=== PATIENT | male | born 1955 | race American Indian/Alaskan Native ===

== ENCOUNTER 2018-04-15 09:07 | Observation (INO) | payer MEDICARE, OTHER ==
[2018-04-15 09:07] VITALS: BMI 26.6
[2018-04-15 09:38] LABS: BASO % 1.5 % (0.0-2.0); EOS # 0.1 K/uL (0.0-0.7); EOS % 3.1 % (0.0-4.0); HEMOGLOBIN 12.8 g/dL (12.0-18.0); LYMPH # 0.6 K/uL (1.0-4.3); LYMPH % 20.7 % (20.0-40.0); MEAN CORPUSCULAR HEMOGLOBIN 28.1 pg (27.0-31.0); MEAN CORPUSCULAR HGB CONC 31.5 g/dL (33.0-37.0); MEAN PLATELET VOLUME 9.7 fL (7.2-11.7); MONO # 0.3 K/uL (0.0-0.8); MONO % 10.2 % (0.0-10.0); NEUT % 64.5 % (50.0-75.0); NRBC % 0.1 % (0.0-2.0); RBC 4.56 Mil/uL (4.40-5.90); RED CELL DISTRIBUTION WIDTH 12.6 % (11.5-14.5); WHITE BLOOD COUNT 3.1 K/uL (4.8-10.8)
[2018-04-15 09:46] LABS: INR 1.1; PROTHROMBIN TIME 11.8 SECONDS (9.7-12.2)
[2018-04-15 09:54] LABS: ALB/GLOB RATIO 1.4 (1.0-2.1); ALBUMIN 4.4 g/dL (3.5-5.0); ALT/SGPT 54 U/L (21-72); AST/SGOT 45 U/L (17-59); BLOOD UREA NITROGEN 18 mg/dL (9-20); CALCIUM 9.4 mg/dl (8.6-10.4); GFR NON-AFRICAN AMERICAN > 60
[2018-04-15 10:05] LABS: CK-MB 2.16 ng/mL (0.0-3.38)
[2018-04-15] MEDS ORDERED: Tetracaine 0.5% Ophth (OR ONLY) OD ONE (10:20)
--- NOTE | 2018-04-15 10:26 | CT ---
Date of service: 04/15/2018 PROCEDURE: CT HEAD WITHOUT CONTRAST. HISTORY: Blurry vision COMPARISON: No prior TECHNIQUE: Axial computed tomography images were obtained through the head/brain without intravenous contrast. Radiation dose: Total exam DLP = 1121.2 mGy-cm. This CT exam was performed using one or more of the following dose reduction techniques: Automated exposure control, adjustment of the mA and/or kV according to patient size, and/or use of iterative reconstruction technique. FINDINGS: HEMORRHAGE: No intracranial hemorrhage. BRAIN: Mild chronic kishor periventricular white matter ischemic changes which extend peripherally into the deep white matter both cerebral hemispheres. There may be a few tiny chronic bilateral basal nuclei lacunar type infarcts. VENTRICLES: No obstructive hydrocephalus. CALVARIUM: Acute calvarial fracture seen. PARANASAL SINUSES: Minor mucosal thickening seen in the few ethmoid air cells and left aspect of the frontal sinus. there is also minimal mucosal thickening right chamber sphenoid sinus versus a tiny fluid level MASTOID AIR CELLS: Unremarkable as visualized. No inflammatory changes. Note made of flattening of the superior surface left mandibular condyle; rule out sequela of old trauma. OTHER FINDINGS: Note made of buckle procedure left globe. In addition, there is a semi lunar shaped 14 mm x 4.8 mm mixed density structure which appears to be located within or beneath the left eyelid. Consider ophthalmologic consultation for further evaluation. IMPRESSION: No acute intracranial hemorrhage. Mild chronic periventricular white matter ischemic changes with suspected few chronic bilateral basal nuclei lacunar type infarcts.. Mild generalized volume loss. Buckle procedure left globe. There is a small semi lunar shaped mixed density structure which appears to be either within along the surface of the left globe beneath the eyelid or within the left eyelid of uncertain etiology. Ophthalmologic consultation suggested Minimal mucosal thickening within the aforementioned paranasal sinuses.
[2018-04-15] MEDS ORDERED: Tetracaine 0.5% Ophth (OR ONLY) ONE (10:37)
--- NOTE | 2018-04-15 10:54 | C.PDOC ---
History Of Present Illness 63 y/o male,w/PMhx of diabetes and HTN, presents to the ER for evaluation of blurry vision in right eye which has been present since the morning today. Patient states that the blurriness began after he took his diabetes and HTN medi cations. Patient reports that he has history of left eye lens removal secondary to glaucoma. He notes that he only has vision in his right eye. Denies having facial droop, gaze changes, slurred speech, extremity weakness, sensory changes, CP, SOB, and palpitations. Time Seen by Provider: 04/15/18 09:18 Chief Complaint (Nursing): Eye Problem History Per: Patient History/Exam Limitations: no limitations Onset/Duration Of Symptoms: Hrs Current Symptoms Are (Timing): Still Present Severity: Moderate Past Medical History Reviewed: Historical Data, Nursing Documentation, Vital Signs Vital Signs: Last Vital Signs Temp 97.3 F L 04/15/18 09:09 Pulse 97 H 04/15/18 09:09 Resp 20 04/15/18 09:09 BP 157/91 H 04/15/18 09:09 Pulse Ox 97 04/15/18 09:09 - Medical History PMH: Arthritis, Diabetes, HTN, Hypercholesterolemia Denies: Chronic Kidney Disease Surgical History: Cholecystectomy Family History: States: No Known Family Hx - Social History Hx Tobacco Use: No Hx Alcohol Use: No Hx Substance Use: No - Immunization History Hx Influenza Vaccination: Yes (2018) Hx Pneumococcal Vaccination: Yes (2018) Review Of Systems Except As Marked, All Systems Reviewed And Found Negative. Constitutional: Negative for: Fever, Chills Eyes: Positive for: Other (right eye blurriness) Cardiovascular: Negative for: Chest Pain, Palpitations Respiratory: Negative for: Shortness of Breath Neurological: Negative for: Weakness, Numbness Physical Exam - Physical Exam Appears: Non-toxic, No Acute Distress Skin: Normal Color, Warm, Dry Head: Atraumatic, Normacephalic Eye(s): bilateral: Other (left eye: pupil is fixed right eye:pupil is reactive, no erythema, no injection, no discharge) Nose: Normal Oral Mucosa: Moist Neck: Supple Chest: Symmetrical Cardiovascular: Rhythm Regular Respiratory: Normal Breath Sounds, No Rales, No Rhonchi, No Wheezing Neurological/Psych: Oriented x3, Normal Speech ED Course And Treatment - Laboratory Results Result Diagrams: 04/15/18 09:35 04/15/18 09:35 Lab Results: PT 11.8 SECONDS (9.7-12.2) 04/15/18 09:35 INR 1.1 04/15/18 09:35 APTT 29 SECONDS (21-34) 04/15/18 09:35 Troponin I 0.0140 ng/mL (0.00-0.120) 04/15/18 09:35 Total Bilirubin 0.8 mg/dL (0.2-1.3) 04/15/18 09:35 AST 45 U/L (17-59) 04/15/18 09:35 ALT 54 U/L (21-72) 04/15/18 09:35 Alkaline Phosphatase 100 U/L (38-126) 04/15/18 09:35 Total Protein 7.4 g/dL (6.3-8.3) 04/15/18 09:35 Albumin 4.4 g/dL (3.5-5.0) 04/15/18 09:35 Globulin 3.0 gm/dL (2.2-3.9) 04/15/18 09:35 Albumin/Globulin Ratio 1.4 (1.0-2.1) 04/15/18 09:35 O2 Sat by Pulse Oximetry: 97 (RA) Pulse Ox Interpretation: Normal - CT Scan/US CT-Head Other Rad Studies (CT/US): Read By Radiologist, Radiology Report Reviewed CT/US Interpretation: Date of service: 04/15/2018. PROCEDURE: CT HEAD WITHOUT CONTRAST. HISTORY: Blurry vision. COMPARISON: No prior. TECHNIQUE: Axial computed tomography images were obtained through the head/brain without intravenous contrast. Radiation dose: Total exam DLP = 1121.2 mGy-cm. This CT exam was performed using one or more of the following dose reduction techniques: Automated exposure control, adjustment of the mA and/or kV according to patient size, and/or use of iterative reconstruction technique. FINDINGS: HEMORRHAGE: No intracranial hemorrhage. BRAIN: Mild chronic kishor periventricular white matter ischemic changes which extend peripherally into the deep white matter both cerebral hemispheres. There may be a few tiny chronic bilateral basal nuclei lacunar type infarcts. VENTRICLES: No obstructive hydrocephalus. CALVARIUM: Acute calvarial fracture seen. PARANASAL SINUSES: Minor mucosal thickening seen in the few ethmoid air cells and left aspect of the frontal sinus. there is also minimal mucosal thickening right chamber sphenoid sinus versus a tiny fluid level. MASTOID AIR CELLS: Unremarkable as visualized. No inflammatory changes. Note made of flattening of the superior surface left mandibular condyle; rule out sequela of old trauma. OTHER FINDINGS: Note made of buckle procedure left globe. In addition, there is a semi lunar shaped 14 mm x 4.8 mm mixed density structure which appears to be located within or beneath the left eyelid. Consider ophthalmologic consultation for further evaluation. IMPRESSION: No acute intracranial hemorrhage. Mild chronic periventricular white matter ischemic changes with suspected few chronic bilateral basal nuclei lacunar type infarcts.. Mild generalized volume loss. Buckle procedure left globe. There is a small semi lunar shaped mixed density structure which appears to be either within along the surface of the left globe beneath the eyelid or within the left eyelid of uncertain etiology. Ophthalmologic consultation suggested. Minimal mucosal thickening within the aforementioned paranasal sinuses. Progress Note: Blood work, CT head ordered and reviewed. 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 Began to have right eye blurry vision this morning, intraocular pressures checked by me, 30/34. Patient unable to do visual acuity due to blurry vision. NIHSS Stroke Scale - Date/Time Evaluation Performed Date Performed: 04/15/18 Time Performed: 09:09 When Was NIHSS Performed: Baseline - How Severe is the Stoke Level of Consciousness: 0=Alert LOC to Questions: 0=Both comments correct LOC to commands: 0=Obeys both correctly Best Gaze: 0=Normal Visual: 2=Complete hemianopia Facial: 0=Normal Motor Arm - Left: 0=No drift Motor Arm - Right: 0=No drift Motor Leg - Left: 0=No drift Motor Leg - Right: 0=No drift Limb Ataxia: 0=Absent Sensory: 0=Normal Best Language: 0=No aphasia Dysarthia: 0=Normal articulation Extinction & Inattention (Neglect): 0=Normal, no object Score: 2 rTPA Inclusion/Exclusion - Refusal of Treatment Patient Refused Treatment: Yes - Inclusion Criteria for Altepase Patient is 18 years or Older: No The Clinical Diagnosis of Ischemic Stroke That is Causing a Potentially Disabling Neurological Deficit: No Time of Onset is Well Established to be Less Than 270 Minute Before Treatment Would Begin: No Risk/Benefit Discussed With Patient/Family Member Present: No Disposition - Disposition Disposition: HOSPITALIZED - Scribe Statement The provider has reviewed the documentation as recorded by the Cathie Crawford Provider Attestation: All medical record entries made by the Zulemaibe were at my direction and personally dictated by me. I have reviewed the chart and agree that the record accurately reflects my personal performance of the history, physical exam, med ica decision making, and the department course for this patient. I have also personally directed, reviewed, and agree with the discharge instructions and disposition.
[2018-04-15 17:41] VITALS: RESP 20
[2018-04-15] MEDS: Enoxaparin 40 mg Syringe SC SCH (19:18)
[2018-04-15] MEDS ORDERED: Latanoprost 2.5 ml Opht Soln OU SCH (22:00)
[2018-04-15] MEDS: (Novolin R) Insulin Human Regular 100 units/ml vial SC SCH (22:17)
[2018-04-15] MEDS: Dorzolamide 2% Opht Sol 10ml OU SCH (22:19)
[2018-04-16 01:36] VITALS: O2SAT 98
[2018-04-16 06:55] LABS: HDL CHOLESTEROL 77 mg/dL (30-70)
[2018-04-16 07:06] LABS: LDL CHOLESTEROL 80 mg/dL (0-129)
[2018-04-16] MEDS: (Novolin R) Insulin Human Regular 100 units/ml vial SC SCH ×2 (08:13→11:27)
[2018-04-16] MEDS: Enoxaparin 40 mg Syringe SC SCH (09:12)
[2018-04-16] MEDS: Dorzolamide 2% Opht Sol 10ml OU SCH (09:14)
[2018-04-16] MEDS ORDERED: GlipiZIDE 2.5 mg Tab PO SCH (10:00)
--- NOTE | 2018-04-16 12:19 | CARD ---
APPROVED REPORT Date of service: 04/15/2018 EKG Measurement Heart [id number] <Conclusion> Normal sinus rhythm Minimal voltage criteria for LVH, may be normal variant Borderline ECG
--- NOTE | 2018-04-16 12:24 | MRI ---
Date of service: 04/16/2018 PROCEDURE: MRI BRAIN WITHOUT CONTRAST HISTORY: CVA COMPARISON: CT head without contrast from 04/15/2018. TECHNIQUE: Multiplanar, multisequence MR images of the brain were obtained without intravenous contrast enhancement. FINDINGS: HEMORRHAGE: None DWI: No evidence of an acute or early subacute infarction. BRAIN PARENCHYMA: There are moderate chronic microangiopathic changes. There is no mass, mass effect or abnormal extra-axial fluid collection. There is no territorial infarction. There is a partially empty sella. The midline sagittal structures are normal. VENTRICLES: There is mild age-related global parenchymal volume loss and proportionate enlargement of the ventricles and cortical sulci. CRANIUM: There is normal bone marrow signal pattern. ORBITS: Grossly unremarkable. PARANASAL SINUSES/MASTOIDS: Micro is there is mild mucosal thickening in the paranasal sinuses. The mastoid air cells are clear. VASCULAR SYSTEM: Skull base flow voids intact. OTHER FINDINGS: None. IMPRESSION: 1. No acute intracranial abnormality. 2. Mild chronic microangiopathic changes and mild age-related global parenchymal volume loss.
--- NOTE | 2018-04-16 16:30 | CP.PCM.PN ---
Subjective - Date & Time of Evaluation Date of Evaluation: 04/16/18 Time of Evaluation: 12:00 - Subjective Subjective: patient seen today, states feels better, denies any blurred vision states seeing things ok and walks around the floor without any issues vss and labs reviewed- stable Objective - Vital Signs/Intake and Output Vital Signs (last 24 hours): Temp Pulse Resp BP Pulse Ox 97.7 F 77 20 126/83 98 04/16/18 07:00 04/16/18 11:37 04/16/18 07:00 04/16/18 07:00 04/16/18 07:00 Intake and Output: 04/16/18 04/16/18 06:59 18:59 Intake Total 350 Balance 350 - Medications Medications: Current Medications Aspirin (Ecotrin) 81 mg PO DAILY [facility] Last Admin: 04/16/18 09:11 Dose: 81 mg Dorzolamide HCl (Trusopt) 1 ml OU BID [facility] Last Admin: 04/16/18 09:14 Dose: 1 ml Enoxaparin Sodium (Lovenox) 40 mg SC DAILY [facility] Last Admin: 04/16/18 09:12 Dose: 40 mg Glipizide (Glucotrol) 2.5 mg PO DAILY [facility] Last Admin: 04/16/18 09:13 Dose: 2.5 mg Hydrochlorothiazide (Microzide) 12.5 mg PO DAILY [facility] Last Admin: 04/16/18 09:11 Dose: 12.5 mg Insulin Human Regular (Novolin R) 0 unit SC [facility]; Protocol Last Admin: 04/16/18 11:27 Dose: 3 u Latanoprost (Xalatan Opht) 0 ml OU [facility] Last Admin: 04/15/18 22:14 Dose: 2.5 ml Lisinopril (Zestril) 10 mg PO DAILY [facility] Last Admin: 04/16/18 09:12 Dose: 10 mg Rosuvastatin Calcium (Crestor) 20 mg PO HS [facility] Last Admin: 04/15/18 22:14 Dose: 20 mg - Labs Labs: 04/15/18 09:35 04/15/18 09:35 PT 11.8 SECONDS (9.7-12.2) 04/15/18 09:35 INR 1.1 04/15/18 09:35 APTT 29 SECONDS (21-34) 04/15/18 09:35 Assessment and Plan - Assessment and Plan (Free Text) Assessment: A/P 63 y/o male,w/PMhx of diabetes and HTN, presents to the ER for evaluation of blurry vision in right eye x 1 day blurry vision resolved and patient wants to go home seen by Dr. Jackelyn Lopez, electrical parts reconditioner, cleared for discharge home today and f/ u with his office for further work up MRI - done - 1. No acute intracranial abnormality. 2. Mild chronic microangiopathic changes and mild age-related global parenchymal volume loss. D/w Dr. powell cleared for discharge home today and f/u with PMD and electrical parts reconditioner discharge plan discussed with patient who understands and agrees with plan patient instructed to returns to ED if symptoms returns or any other concerning symptoms
[2018-04-16 16:49] VITALS: BP 99/63; PULSE 87; TEMP 97.6
--- NOTE | 2018-04-16 21:26 | CP.PCM.HP ---
Present on Admission - Present on Admission Any Indicators Present on Admission: No Past Patient History - Infectious Disease Hx of Infectious Diseases: None - Past Medical History & Family History Past Medical History?: Yes - Past Social History Smoking Status: Never Smoked - CARDIAC Hx Hypercholesterolemia: Yes Hx Hypertension: Yes - PULMONARY Hx Respiratory Disorders: No - NEUROLOGICAL Hx Neurological Disorder: No - HEENT Hx HEENT Problems: Yes Hx Cataracts: Yes (LEFT EYE) - RENAL Hx Chronic Kidney Disease: No - ENDOCRINE/METABOLIC Hx Diabetes Mellitus Type 2: Yes - HEMATOLOGICAL/ONCOLOGICAL Hx Blood Disorders: No - INTEGUMENTARY Hx Dermatological Problems: No - MUSCULOSKELETAL/RHEUMATOLOGICAL Hx Arthritis: Yes - GASTROINTESTINAL Hx Gastrointestinal Disorders: No - GENITOURINARY/GYNECOLOGICAL Hx Genitourinary Disorders: No - PSYCHIATRIC Hx Substance Use: No - SURGICAL HISTORY Hx Cholecystectomy: Yes - ANESTHESIA Hx Anesthesia: Yes Hx Anesthesia Reactions: No Hx Malignant Hyperthermia: No Meds Allergies/Adverse Reactions: Allergies Allergy/AdvReac Type Severity Reaction Status Date / Time No Known Allergies Allergy Verified 04/15/18 09:16 Results - Vital Signs Recent Vital Signs: Last Vital Signs Temp 97.6 F 04/16/18 16:00 Pulse 87 04/16/18 16:00 Resp 20 04/16/18 16:00 BP 99/63 L 04/16/18 16:00 Pulse Ox 98 04/16/18 16:00 - Labs Result Diagrams: 04/15/18 09:35 04/15/18 09:35 Labs: Laboratory Results - last 24 hr 04/15/18 04/16/18 04/16/18 19:42 06:32 12:53 ESR 3 Hemoglobin A1c 6.8 H Triglycerides 62 Cholesterol 161 LDL Cholesterol Direct 80 HDL Cholesterol 77 H
--- NOTE | 2018-04-17 00:24 | CON ---
DATE: 04/16/2018 REASON FOR CONSULTATION: Blurry vision of right eye. HISTORY OF PRESENT ILLNESS: The patient is a 63-year-old male with past medical history for diabetes. He reports fuzzy vision in his right eye for the last few days. He reports today that his vision, he feels, is clearing back up. PAST OCULAR HISTORY: Damage to his left eye which left him with no vision. He has had retinal lasers done in both eyes. He has had cataract surgery done in his left eye. PHYSICAL EXAMINATION: HEENT: On today's exam his vision right eye is 20/40, left eye has no light perception. He has an APD on his left eye. On slit lamp exam, his eye pressure is normal in both eyes. His cornea has few peripheral scars on the right side. His anterior chamber in both eyes is clear. He has a nuclear sclerotic cataract in the right eye. He has an artificial lens in the left eye. On posterior exam, he has signs of retinal lasers in both eyes. He has mild diabetic retinopathy in the right eye. In the left eye, his nerve is atrophic. Otherwise, he has no acute issue. ASSESSMENT: 1. Diabetic retinopathy in the right eye. 2. Nuclear cataract, right eye. PLAN: Upon discharge, we are going to make an appointment within the next couple of weeks to see Ophthalmology to address those issues. John Gonzales MD
--- NOTE | 2018-04-17 03:11 | HP ---
CHIEF COMPLAINT: Blurring of vision x1 day. HISTORY OF PRESENT ILLNESS: This is a 63-year-old male with history of type 2 diabetes, on medication and hypertension. He has glaucoma. 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 Te patient is compliant with his medication for the eye, diabetes, hypertension. The patient was alert until the morning he was admitted. The patient complained of worsening blurring of vision in his only remaining eye after he took his sugar and blood pressure medications. He has prior history of left eye lens removal secondary to glaucoma. He only has vision in the right eye and since yesterday morning it was blurry. REVIEW OF SYSTEMS: The patient denies any history of tingling, numbness, paresthesias on the face, arms, legs, shoulder. The patient denies any history of headache, vertigo. He denies any history of nausea, vomiting. He denies any history of abdominal pain. He denies any history of facial droop, changes, slurring of speech, extremity weakness, sensory changes. No history of chest pain, shortness of breath. He denies any palpitation, weakness, dizziness. There is no history of polyuria, polydipsia, polyphagia. There is no history of hematuria, pyuria. There is no history of sneezing, itchy eyes, itchy nose. There is no history of fever, chills, rigor. There is no history of head injury, trauma, fall, loss of consciousness. PAST MEDICAL HISTORY: Type 2 diabetes, hypertension, hyperlipidemia, osteoarthritis, glaucoma, cholecystectomy. SOCIAL HISTORY: He is a nonsmoker, non-EtOH user. FAMILY HISTORY: Noncontributory. CURRENT MEDICATIONS: At home, he is on Xalatan and dorzolamide. PHYSICAL EXAMINATION: GENERAL: An elderly male, in no acute distress. VITAL SIGNS: Blood pressure 126/83, pulse 81, respiratory rate 20, temperature 97.7. SKIN: Senile turgor. No bruises. No purpura. No petechiae. HEENT: Atraumatic, normocephalic. Negative pallor. Left eye has opacity, site of lens removed. Right eye has poor vision. Oral cavity: Poor oral hygiene. Missing teeth. NECK: Supple. No JVD. No lymph nodes. No thyromegaly. No carotid bruit. CHEST: Chest wall, bilateral symmetrical expansion. No tenderness. LUNGS: Clear. No rales. No rhonchi. CARDIOVASCULAR SYSTEM: PMI not localized. S1 and S2, regular. No heave. No thrill. ABDOMEN: Soft, nontender. Bowel sounds are positive. RECTAL: Enlarged prostate. EXTREMITIES: No clubbing, cyanosis, edema. CENTRAL NERVOUS SYSTEM: Awake, alert, oriented x3. Cranial nerves II-XII are normal. The patient has decreased visual acuity in the right eye, blind on the left eye. ASSESSMENT: 1. Blurring of vision, rule out cerebrovascular accident, rule out worsening glaucoma. 2. Diabetes. 3. Hypertension. PLAN: Admit. Detailed orders are written. Seen and examined. Shadi Vale MD
== END 2018-04-16 17:41 | disposition home or self-care (01) ==
LOC: C.ER 09:07 → C.9E 12:23 → C.6T 14:58 → C.9E 15:06 → C.5S 15:18 → C.9E 15:39 → C.6T 15:54
PROVIDERS: ADMIT Internal Medicine; ATTEND Internal Medicine
DX: H53.8 Other visual disturbances (principal); E11.36 Type 2 diabetes mellitus with diabetic cataract; E78.5 Hyperlipidemia, unspecified; H40.9 Unspecified glaucoma; I10 Essential (primary) hypertension; E11.319 Type 2 diabetes mellitus with unspecified diabetic retinopathy without macular edema
CPT/HCPCS: 36415; 70450; 70551; 80053; 80061; 82550; 82553; 82948; 83036; 84484; 85025; 85610; 85651; 85730; 93005; 97116; 97161; 99285; G0378; G8978; G8979; G8980; J1650